=== PATIENT | male | born 1965 | race Caucasian/White ===

== ENCOUNTER 2017-03-25 18:18 | Emergency (ER) | payer BC ==
[~2017-03-25] VITALS: Ht 172.7 cm; Wt 122.5 kg
--- NOTE | ~2017-03-25 | US85 ---
[facility] A Service of [facility] & [facility] RADIOLOGY TEXT RESULTS PATIENT: CHRIS RICO LOCATION: SED : 63 UNIT #: [id number] AGE: [address]: Angelita Pichardo SEX: M ORDER DR: [id number] [address] [address] [id number] E MR#: [id number] Acc #: [id number] NAME: CHRIS RICO : 1965 SEX: M STUDY DATE/TIME: 03/25/2017 19:38 UNIT: SED ROOM: STUDY DESCRIPTION: LE Veins Unilat or Ltd Stdy Attending Physician: Angelita Pichardo Pa-C Ordering Physician: Brielle Garcias Primary Care Physician: Christo Tiwari M.D. MEDICAL IMAGING REPORT This report is preliminary unless electronic signature is present. EXAM Right lower extremity venous duplex ultrasound, 03/25/2017 HISTORY 51-year-old male with right lower extremity pain and swelling for 3 days. COMPARISON None FINDINGS Real-time zhou-scale, color Doppler, and spectral Doppler analysis of the right lower extremity deep venous system demonstrates normal venous waveforms with normal compressibility and augmentation throughout. No evidence of right lower extremity deep venous thrombosis. IMPRESSION Negative for right lower extremity DVT. Dictated by... Lenin Mccain M.D. THIS IS AN ELECTRONICALLY VERIFIED REPORT Lenin Mccain M.D. at 03/27/2017 10:51 AM CRESENCIO/samson TD: 03/26/2017 19:56 JOB #: [id number] MEDICAL IMAGING REPORT Page 1 of 1
[2017-03-25] MEDS ORDERED: METHOTREXATE1 G1 (18:31)
[2017-03-25 19:18] LABS: BASOPHIL# 0.1 X10e3 (0-0.3); BASOPHIL% 0.9 % (0-2.5); EOSINOPHIL# 0.5 X10e3 (0-0.7); EOSINOPHIL% 5.4 % (0.0-7.0); HEMATOCRIT 41.8 % (38.0-50.0); HEMOGLOBIN 14.7 gm/dL (13.0-16.0); LYMPHOCYTE# 2.5 X10e3 (1.0-3.5); LYMPHOCYTE% 27.9 % (17.0-45.0); MEAN CELL VOLUME 91.4 FL (83-96); MEAN CORPUSCULAR HEMOGLOBIN 32.3 PG (28-34); MEAN CORPUSCULAR HGB CONC 35.3 g/dL (30-36); MEAN PLATELET VOLUME 7.5 FL (6.5-11.5); MONOCYTE# 0.4 X10e3 (0-1.0); MONOCYTE% 4.6 % (3.0-12.0); NEUTROPHIL# 5.5 X10e3 (1.5-7.1); NEUTROPHIL% 61.2 % (40-75); PLATELET COUNT 275 X10e3 (140-420); RED BLOOD COUNT 4.57 X10e (3.90-5.60)
[2017-03-25 19:27] LABS: INR 1.2; PROTHROMBIN TIME (PATIENT) 13.8 SECONDS (9.5-12.4)
[2017-03-25 19:31] LABS: ALBUMIN SERUM 3.9 g/dL (3.5-5.0); BILIRUBIN,TOTAL 0.5 mg/dL (0.2-2.0); CALCIUM SERUM 8.5 mg/dL (8.4-10.2); DIFF IND NO; GLOM FILT RATE Estimated 86.2 mL/min (>60); POTASSIUM 3.5 mmol/L (3.5-5.1); PROTEIN TOTAL SERUM 7.4 g/dL (6.0-8.3)
[2017-03-25 19:34] LABS: PARTIAL THROMBOPLASTIN TIME 24.7 SECONDS (25.6-38.1)
== END 2017-03-25 20:46 | disposition home or self-care (01) ==
LOC: SED 18:18
PROVIDERS: Physician Assistant
DX: L03.115 Cellulitis of right lower limb (principal); F17.210 Nicotine dependence, cigarettes, uncomplicated; Z86.718 Personal history of other venous thrombosis and embolism; Z88.1 Allergy status to other antibiotic agents
CPT/HCPCS: 80053; 85025; 85610; 85730; 93971; 99284